=== PATIENT | female | born 1980 | race Caucasian/White ===

== ENCOUNTER 2018-11-21 11:07 | Emergency (ER) | payer OTHER ==
[~2018-11-21] VITALS: Ht 167.6 cm; Wt 81.6 kg
[~2018-11-21 11:07] MED LIST: AMBIEN10 M1 PO; CIPROFLOXACIN500 MG PO; PERCOCET 325 MG1 TA2 PO; TORADOL NAS; UROCIT-K15 MEQ PO
[2018-11-21 12:01] LABS: BILIRUBIN NEGATIVE (NEGATIVE); BLOOD 3+ (NEGATIVE); CLARITY CLOUDY (CLEAR); COLOR BROWN (YELLOW); GLUCOSE NEGATIVE (NEGATIVE); KETONE NEGATIVE (NEGATIVE); LEUKO ESTERASE 2+ (NEGATIVE); NITRITE NEGATIVE (NEGATIVE); SPECIFIC GRAVITY 1.025 (1.005-1.030); UROBILINOGEN 0.2 E.U./dl (0.2-1.0)
[2018-11-21 12:27] LABS: BACTERIA 2+; RBC TNTC rbc/hpf (0-2)
[2018-11-21 12:28] LABS: CALCIUM OXALATE CRYSTALS TRACE; EPITHELIAL CELLS 20-30
[2018-11-21 12:57] LABS: BASO % 0.5 % (0.0-1.0); EOS # 0.2 10*3/uL (0.0-0.4); EOS % 2.5 % (1.0-4.0); HEMATOCRIT 39.2 % (37.0-47.0); HEMOGLOBIN 13.3 g/dl (12.0-16.0); LYMPH # 1.8 10*3/uL (1.3-4.4); LYMPH % 30.2 % (27.0-41.0); MEAN CELL VOLUME 87.3 fl (81.0-99.0); MEAN CORPUSCULAR HGB 29.6 pg (27.0-31.0); MEAN CORPUSCULAR HGB CONC 33.9 g/dl (33.0-37.0); MEAN PLATELET VOLUME 10.8 fl (9.6-12.3); MONO # 0.6 10*3/uL (0.1-1.0); MONO % 9.8 % (3.0-9.0); NEUT # 3.4 10*3/uL (2.3-7.9); NEUT % 56.8 % (47.0-73.0); PLATELET COUNT AUTOMATED 236 10*3/uL (130-400); RED BLOOD COUNT 4.49 10*6/uL (4.10-5.10); RED CELL DISTRI WIDTH 12.9 % (0-14.5)
[2018-11-21 13:20] LABS: ALBUMIN 3.7 gm/dl (3.1-4.5); ALKALINE PHOSPHATASE 83 U/L (45-117); BUN 14 mg/dl (7-24); CHLORIDE 109 mmol/L (98-107); CREATININE 0.71 mg/dL (0.55-1.02); LIPASE 200 U/L (73-393); POTASSIUM 4.2 mmol/L (3.5-5.1); SGOT/AST 51 IU/L (3-35); SGPT/ALT 70 U/L (12-78); SODIUM 140 mmol/L (136-145); TOTAL PROTEIN 7.8 gm/dL (6.4-8.2)
[2018-11-21] MEDS ORDERED: SEPTDS PO (14:29)
[2018-11-21] MEDS ORDERED: IBUPROFEN600 MG PO (14:29)
== END 2018-11-21 15:15 | disposition home or self-care (01) ==
LOC: ED 11:07 → EDBD 11:14 → ED 11:14
PROVIDERS: Emergency Medicine; Physician Assistant
DX: N20.0 Calculus of kidney (principal); N39.0 Urinary tract infection, site not specified; Z87.442 Personal history of urinary calculi; Z91.041 Radiographic dye allergy status; Z90.710 Acquired absence of both cervix and uterus; Z90.49 Acquired absence of other specified parts of digestive tract

== ENCOUNTER 2019-01-09 11:38 | Emergency (ER) | payer OTHER ==
[~2019-01-09] VITALS: Wt 81.6 kg
[~2019-01-09 11:38] MED LIST changes: +IBUPROFEN600 MG PO; +SEPTDS PO
[2019-01-09 12:22] LABS: BILIRUBIN NEGATIVE (NEGATIVE); BLOOD 3+ (NEGATIVE); CLARITY CLOUDY (CLEAR); COLOR YELLOW (YELLOW); GLUCOSE NEGATIVE (NEGATIVE); KETONE TRACE (NEGATIVE); LEUKO ESTERASE 1+ (NEGATIVE); NITRITE NEGATIVE (NEGATIVE); PH 5.5 (5.0-9.0); SPECIFIC GRAVITY 1.025 (1.005-1.030); UROBILINOGEN 0.2 E.U./dl (0.2-1.0)
[2019-01-09 12:35] LABS: BACTERIA 4+; EPITHELIAL CELLS 25-30; RBC TNTC rbc/hpf (0-2)
[2019-01-09 12:42] LABS: URINE AMPHETAMINES > 1000 (1000ng/ml); URINE BARBITURATES < 200 (200ng/ml); URINE BENZODIAZEPINES > 200 (200ng/ml); URINE CANNABINOIDS (THC) < 50 (50ng/ml); URINE COCAINE < 300 (300ng/ml); URINE METHADONE < 300 (300ng/ml); URINE OPIATES > 300 (300ng/ml); URINE PHENCYCLIDINE < 25 (25ng/ml)
[2019-01-09 12:49] LABS: BASO % 0.6 % (0.0-1.0); EOS # 0.1 10*3/uL (0.0-0.4); EOS % 1.9 % (1.0-4.0); HEMATOCRIT 40.5 % (37.0-47.0); HEMOGLOBIN 13.5 g/dl (12.0-16.0); LYMPH % 29.3 % (27.0-41.0); MEAN CELL VOLUME 87.5 fl (81.0-99.0); MEAN CORPUSCULAR HGB 29.2 pg (27.0-31.0); MEAN CORPUSCULAR HGB CONC 33.3 g/dl (33.0-37.0); MONO # 0.6 10*3/uL (0.1-1.0); MONO % 8.7 % (3.0-9.0); NEUT # 4.1 10*3/uL (2.3-7.9); NEUT % 59.2 % (47.0-73.0); PLATELET COUNT AUTOMATED 215 10*3/uL (130-400); RED BLOOD COUNT 4.63 10*6/uL (4.10-5.10); RED CELL DISTRI WIDTH 12.4 % (0-14.5); WHITE BLOOD COUNT 6.9 10*3/uL (4.8-10.8)
[2019-01-09 13:01] LABS: BUN 15 mg/dl (7-24); CHLORIDE 108 mmol/L (98-107); CREATININE 0.82 mg/dL (0.55-1.02); POTASSIUM 3.7 mmol/L (3.5-5.1); SODIUM 140 mmol/L (136-145)
== END 2019-01-09 13:37 | disposition home or self-care (01) ==
LOC: ED 11:38
PROVIDERS: Emergency Medicine
DX: N23 Unspecified renal colic (principal); Z90.710 Acquired absence of both cervix and uterus; Z98.890 Other specified postprocedural states; Z90.49 Acquired absence of other specified parts of digestive tract; Z87.440 Personal history of urinary (tract) infections; Z79.899 Other long term (current) drug therapy; Z87.442 Personal history of urinary calculi

== ENCOUNTER 2019-01-11 11:21 | Emergency (ER) | payer OTHER ==
[2019-01-11 11:49] LABS: BASO % 0.4 % (0.0-1.0); EOS # 0.2 10*3/uL (0.0-0.4); HEMATOCRIT 39.5 % (37.0-47.0); LYMPH # 1.6 10*3/uL (1.3-4.4); LYMPH % 22.4 % (27.0-41.0); MEAN CELL VOLUME 89.4 fl (81.0-99.0); MEAN CORPUSCULAR HGB 29.4 pg (27.0-31.0); MEAN CORPUSCULAR HGB CONC 32.9 g/dl (33.0-37.0); MEAN PLATELET VOLUME 10.2 fl (9.6-12.3); MONO # 0.7 10*3/uL (0.1-1.0); MONO % 9.9 % (3.0-9.0); NEUT # 4.7 10*3/uL (2.3-7.9); PLATELET COUNT AUTOMATED 199 10*3/uL (130-400); RED BLOOD COUNT 4.42 10*6/uL (4.10-5.10); RED CELL DISTRI WIDTH 12.2 % (0-14.5); WHITE BLOOD COUNT 7.3 10*3/uL (4.8-10.8)
[2019-01-11 11:50] LABS: BILIRUBIN NEGATIVE (NEGATIVE); BLOOD 3+ (NEGATIVE); CLARITY CLOUDY (CLEAR); COLOR YELLOW (YELLOW); GLUCOSE NEGATIVE (NEGATIVE); KETONE NEGATIVE (NEGATIVE); LEUKO ESTERASE TRACE (NEGATIVE); NITRITE NEGATIVE (NEGATIVE); SPECIFIC GRAVITY 1.025 (1.005-1.030); UROBILINOGEN 0.2 E.U./dl (0.2-1.0)
[2019-01-11 12:01] LABS: RBC TNTC rbc/hpf (0-2)
[2019-01-11 12:03] LABS: BACTERIA 1+; EPITHELIAL CELLS 15-20; MUCOUS 1+
[2019-01-11 12:04] LABS: ALKALINE PHOSPHATASE 87 U/L (45-117); BUN 9 mg/dl (7-24); CHLORIDE 106 mmol/L (98-107); CREATININE 0.86 mg/dL (0.55-1.02); POTASSIUM 4.2 mmol/L (3.5-5.1); SGOT/AST 28 IU/L (3-35); SGPT/ALT 58 U/L (12-78); SODIUM 140 mmol/L (136-145); TOTAL PROTEIN 8.1 gm/dL (6.4-8.2)
== END 2019-01-11 12:04 ==
LOC: ED 11:21
PROVIDERS: Nurse Practitioner Family
DX: N23 Unspecified renal colic (principal); Z79.899 Other long term (current) drug therapy; Z90.710 Acquired absence of both cervix and uterus; Z90.49 Acquired absence of other specified parts of digestive tract; Z98.890 Other specified postprocedural states

== ENCOUNTER 2019-02-08 22:32 | Emergency (ER) | payer OTHER ==
[~2019-02-08] VITALS: Ht 165.1 cm; Wt 81.6 kg
[2019-02-08] MEDS ORDERED: LORAZEPAM1 MG PO (22:45)
[2019-02-08] MEDS ORDERED: LATU40TA1 PO (22:45)
[2019-02-08] MEDS ORDERED: KETOROLAC10 MG INH (22:46)
[2019-02-08] MEDS ORDERED: 'CLONIDINE0.1 MG PO (22:46)
[2019-02-08] MEDS ORDERED: CLONAZEPAM1 MG PO (22:46)
[2019-02-08 23:04] LABS: BILIRUBIN NEGATIVE (NEGATIVE); BLOOD 3+ (NEGATIVE); CLARITY CLOUDY (CLEAR); COLOR YELLOW (YELLOW); GLUCOSE NEGATIVE (NEGATIVE); KETONE TRACE (NEGATIVE); LEUKO ESTERASE 2+ (NEGATIVE); NITRITE NEGATIVE (NEGATIVE); PH 5.5 (5.0-9.0); SPECIFIC GRAVITY >= 1.030 (1.005-1.030); UROBILINOGEN 0.2 E.U./dl (0.2-1.0)
[2019-02-08 23:23] LABS: BASO # 0.1 10*3/uL (0.0-0.1); BASO % 0.8 % (0.0-1.0); EOS # 0.2 10*3/uL (0.0-0.4); HEMATOCRIT 41.1 % (37.0-47.0); HEMOGLOBIN 13.7 g/dl (12.0-16.0); LYMPH # 3.6 10*3/uL (1.3-4.4); LYMPH % 47.4 % (27.0-41.0); MEAN CELL VOLUME 88.8 fl (81.0-99.0); MEAN CORPUSCULAR HGB 29.6 pg (27.0-31.0); MEAN CORPUSCULAR HGB CONC 33.3 g/dl (33.0-37.0); MEAN PLATELET VOLUME 10.1 fl (9.6-12.3); MONO # 0.7 10*3/uL (0.1-1.0); MONO % 9.4 % (3.0-9.0); NEUT # 3.1 10*3/uL (2.3-7.9); NEUT % 40.3 % (47.0-73.0); PLATELET COUNT AUTOMATED 200 10*3/uL (130-400); RED BLOOD COUNT 4.63 10*6/uL (4.10-5.10); RED CELL DISTRI WIDTH 12.5 % (0-14.5); WHITE BLOOD COUNT 7.6 10*3/uL (4.8-10.8)
[2019-02-08 23:38] LABS: BACTERIA 1+; RBC TNTC rbc/hpf (0-2)
[2019-02-08 23:39] LABS: ALBUMIN 4.1 gm/dl (3.1-4.5); ALKALINE PHOSPHATASE 89 U/L (45-117); BUN 16 mg/dl (7-24); CHLORIDE 106 mmol/L (98-107); CREATININE 1.03 mg/dL (0.55-1.02); POTASSIUM 3.7 mmol/L (3.5-5.1); SGOT/AST 33 IU/L (3-35); SGPT/ALT 71 U/L (12-78); SODIUM 140 mmol/L (136-145); TOTAL PROTEIN 8.6 gm/dL (6.4-8.2)
== END 2019-02-09 02:15 | disposition home or self-care (01) ==
LOC: ED 22:32
PROVIDERS: Physician Assistant
DX: N20.1 Calculus of ureter (principal); Z87.442 Personal history of urinary calculi; Z91.041 Radiographic dye allergy status; Z79.899 Other long term (current) drug therapy; Z90.710 Acquired absence of both cervix and uterus

== ENCOUNTER 2019-02-25 00:38 | Emergency (ER) | payer OTHER ==
[~2019-02-25] VITALS: Ht 165.1 cm; Wt 81.6 kg
[~2019-02-25 00:38] MED LIST changes: +'CLONIDINE0.1 MG PO; +CLONAZEPAM1 MG PO; +KETOROLAC10 MG INH; +LATU40TA1 PO; +LORAZEPAM1 MG PO
[2019-02-25 01:07] LABS: BILIRUBIN NEGATIVE (NEGATIVE); BLOOD 3+ (NEGATIVE); CLARITY CLEAR (CLEAR); COLOR STRAW (YELLOW); GLUCOSE NEGATIVE (NEGATIVE); KETONE NEGATIVE (NEGATIVE); LEUKO ESTERASE 1+ (NEGATIVE); NITRITE NEGATIVE (NEGATIVE); PH 6.5 (5.0-9.0); SPECIFIC GRAVITY <= 1.005 (1.005-1.030); UROBILINOGEN 0.2 E.U./dl (0.2-1.0)
[2019-02-25 01:14] LABS: BACTERIA TRACE; RBC 51-100 rbc/hpf (0-2)
[2019-02-25 01:31] LABS: BASO % 0.4 % (0.0-1.0); EOS # 0.2 10*3/uL (0.0-0.4); EOS % 2.7 % (1.0-4.0); HEMATOCRIT 39.6 % (37.0-47.0); HEMOGLOBIN 12.9 g/dl (12.0-16.0); LYMPH # 3.3 10*3/uL (1.3-4.4); LYMPH % 47.2 % (27.0-41.0); MEAN CELL VOLUME 89.4 fl (81.0-99.0); MEAN CORPUSCULAR HGB 29.1 pg (27.0-31.0); MEAN CORPUSCULAR HGB CONC 32.6 g/dl (33.0-37.0); MEAN PLATELET VOLUME 10.1 fl (9.6-12.3); MONO # 0.6 10*3/uL (0.1-1.0); MONO % 8.7 % (3.0-9.0); NEUT # 2.8 10*3/uL (2.3-7.9); NEUT % 40.7 % (47.0-73.0); PLATELET COUNT AUTOMATED 192 10*3/uL (130-400); RED BLOOD COUNT 4.43 10*6/uL (4.10-5.10); RED CELL DISTRI WIDTH 12.3 % (0-14.5)
[2019-02-25 01:46] LABS: ALBUMIN 4.2 gm/dl (3.1-4.5); BUN 16 mg/dl (7-24); CHLORIDE 105 mmol/L (98-107); CREATININE 0.85 mg/dL (0.55-1.02); PHOSPHOROUS 3.9 mg/dL (2.5-4.9); POTASSIUM 3.7 mmol/L (3.5-5.1); SODIUM 140 mmol/L (136-145)
== END 2019-02-25 03:25 | disposition left against medical advice (07) ==
LOC: ED 00:38
PROVIDERS: Internal Medicine; Physician Assistant
DX: R10.9 Unspecified abdominal pain (principal); N20.0 Calculus of kidney; Z79.899 Other long term (current) drug therapy; Z90.710 Acquired absence of both cervix and uterus; Z90.49 Acquired absence of other specified parts of digestive tract; Z98.890 Other specified postprocedural states

== ENCOUNTER 2019-04-08 22:48 | Emergency (ER) | payer OTHER ==
[~2019-04-08] VITALS: Ht 152.4 cm; Wt 81.6 kg
[2019-04-08 23:23] LABS: BILIRUBIN NEGATIVE (NEGATIVE); BLOOD 3+ (NEGATIVE); CLARITY SL CLOUDY (CLEAR); COLOR RED (YELLOW); GLUCOSE NEGATIVE (NEGATIVE); KETONE NEGATIVE (NEGATIVE); LEUKO ESTERASE 3+ (NEGATIVE); NITRITE NEGATIVE (NEGATIVE); SPECIFIC GRAVITY <= 1.005 (1.005-1.030); UROBILINOGEN 0.2 E.U./dl (0.2-1.0)
[2019-04-08 23:35] LABS: BACTERIA 1+; EPITHELIAL CELLS 16-20; RBC 51-100 rbc/hpf (0-2); WBC 41-50 wbc/hpf (0-5)
== END 2019-04-08 23:53 | disposition home or self-care (01) ==
LOC: ED 22:48
PROVIDERS: Physician Assistant
DX: R10.9 Unspecified abdominal pain (principal); R11.2 Nausea with vomiting, unspecified; R31.9 Hematuria, unspecified; N20.0 Calculus of kidney; Z91.041 Radiographic dye allergy status; Z79.899 Other long term (current) drug therapy; Z90.710 Acquired absence of both cervix and uterus; Z90.49 Acquired absence of other specified parts of digestive tract

== ENCOUNTER 2019-09-05 11:28 | Emergency (ER) | payer OTHER ==
[~2019-09-05] VITALS: Ht 165.1 cm; Wt 81.6 kg
[2019-09-05 12:00] LABS: BILIRUBIN NEGATIVE (NEGATIVE); BLOOD 3+ (NEGATIVE); CLARITY CLOUDY (CLEAR); COLOR RED (YELLOW); GLUCOSE NEGATIVE (NEGATIVE); KETONE NEGATIVE (NEGATIVE); LEUKO ESTERASE 2+ (NEGATIVE); NITRITE NEGATIVE (NEGATIVE); SPECIFIC GRAVITY 1.025 (1.005-1.030); UROBILINOGEN 0.2 E.U./dl (0.2-1.0)
[2019-09-05 12:16] LABS: RBC TNTC rbc/hpf (0-2)
[2019-09-05 12:26] LABS: BASO # 0.1 10*3/uL (0.0-0.1); BASO % 0.9 % (0.0-1.0); EOS # 0.1 10*3/uL (0.0-0.4); EOS % 2.1 % (1.0-4.0); LYMPH # 2.3 10*3/uL (1.3-4.4); LYMPH % 40.1 % (27.0-41.0); MEAN CELL VOLUME 87.7 fl (81.0-99.0); MEAN CORPUSCULAR HGB 29.2 pg (27.0-31.0); MEAN CORPUSCULAR HGB CONC 33.3 g/dl (33.0-37.0); MONO # 0.5 10*3/uL (0.1-1.0); NEUT # 2.8 10*3/uL (2.3-7.9); NEUT % 48.9 % (47.0-73.0); PLATELET COUNT AUTOMATED 216 10*3/uL (130-400); RED BLOOD COUNT 4.79 10*6/uL (4.10-5.10); RED CELL DISTRI WIDTH 12.3 % (0-14.5); WHITE BLOOD COUNT 5.6 10*3/uL (4.8-10.8)
[2019-09-05 12:41] LABS: ALBUMIN 4.4 gm/dl (3.1-4.5); ALKALINE PHOSPHATASE 88 U/L (45-117); BUN 15 mg/dl (7-24); CHLORIDE 108 mmol/L (98-107); POTASSIUM 3.8 mmol/L (3.5-5.1); SGOT/AST 34 IU/L (3-35); SGPT/ALT 64 U/L (12-78); SODIUM 140 mmol/L (136-145); TOTAL PROTEIN 8.3 gm/dL (6.4-8.2)
== END 2019-09-05 14:18 | disposition home or self-care (01) ==
LOC: ED 11:28
PROVIDERS: Nurse Practitioner Family
DX: N20.0 Calculus of kidney (principal); N23 Unspecified renal colic; Z79.899 Other long term (current) drug therapy

== ENCOUNTER 2020-07-07 22:08 | Emergency (ER) | payer OTHER ==
[~2020-07-07] VITALS: Ht 165.1 cm; Wt 73.5 kg
[2020-07-07 23:27] LABS: BASO % 0.4 % (0.0-1.0); EOS # 0.2 10*3/uL (0.0-0.4); HEMATOCRIT 42.5 % (37.0-47.0); LYMPH # 3.1 10*3/uL (1.3-4.4); LYMPH % 55.6 % (27.0-41.0); MEAN CELL VOLUME 87.6 fl (81.0-99.0); MEAN CORPUSCULAR HGB 28.5 pg (27.0-31.0); MEAN CORPUSCULAR HGB CONC 32.5 g/dl (33.0-37.0); MONO # 0.5 10*3/uL (0.1-1.0); MONO % 8.2 % (3.0-9.0); NEUT # 1.8 10*3/uL (2.3-7.9); NEUT % 32.6 % (47.0-73.0); PLATELET COUNT AUTOMATED 211 10*3/uL (130-400); RED BLOOD COUNT 4.85 10*6/uL (4.10-5.10); RED CELL DISTRI WIDTH 12.1 % (0-14.5); WHITE BLOOD COUNT 5.6 10*3/uL (4.8-10.8)
[2020-07-07 23:38] LABS: ALKALINE PHOSPHATASE 87 U/L (45-117); BUN 11 mg/dl (7-24); CHLORIDE 107 mmol/L (98-107); CREATININE 0.77 mg/dL (0.55-1.02); LIPASE 261 U/L (73-393); POTASSIUM 3.9 mmol/L (3.5-5.1); SGOT/AST 13 IU/L (3-35); SGPT/ALT 26 U/L (12-78); SODIUM 140 mmol/L (136-145); TOTAL PROTEIN 7.9 gm/dL (6.4-8.2)
[2020-07-08 00:05] LABS: BILIRUBIN Negative (Negative); BLOOD 3+ (Negative); CLARITY Cloudy (Clear); COLOR Red (Yellow); GLUCOSE Negative (Negative); KETONE Negative (Negative); LEUKO ESTERASE 3+ (Negative); NITRITE Negative (Negative); SPECIFIC GRAVITY 1.015 (1.001-1.030)
[2020-07-08 00:12] LABS: BACTERIA 1+; RBC TNTC rbc/hpf (0-2); WBC 31-40 wbc/hpf (0-5)
[2020-07-08] MEDS ORDERED: SEPTDS PO (00:45)
[2020-07-08] MEDS ORDERED: PYRIDIUM200 M1 PO (00:45)
== END 2020-07-08 02:03 | disposition home or self-care (01) ==
LOC: ED 22:08
PROVIDERS: Physician Assistant
DX: N39.0 Urinary tract infection, site not specified (principal); N23 Unspecified renal colic; Z79.899 Other long term (current) drug therapy

== ENCOUNTER 2021-02-20 23:55 | Emergency (ER) | payer OTHER ==
[~2021-02-20] VITALS: Ht 165.1 cm; Wt 79.4 kg
[~2021-02-20 23:55] MED LIST changes: +PYRIDIUM200 M1 PO
[2021-02-21 00:58] LABS: BILIRUBIN Negative (Negative); BLOOD 3+ (Negative); CLARITY Clear (Clear); COLOR Orange (Yellow); GLUCOSE Negative (Negative); KETONE Negative (Negative); LEUKO ESTERASE 3+ (Negative); NITRITE Negative (Negative); PH 6.5 (4.5-8.0); UROBILINOGEN 0.2 E.U./dl (0.0-1.0)
[2021-02-21 01:36] LABS: BACTERIA 2+; RBC 41-50 rbc/hpf (0-2); WBC 51-100 wbc/hpf (0-5)
[2021-02-21] MEDS ORDERED: CIPRO500 MG PO (01:58)
== END 2021-02-21 02:07 | disposition home or self-care (01) ==
LOC: ED 23:55
PROVIDERS: Internal Medicine
DX: N39.0 Urinary tract infection, site not specified (principal); Z87.442 Personal history of urinary calculi; Z90.710 Acquired absence of both cervix and uterus; Z98.890 Other specified postprocedural states

== ENCOUNTER 2021-05-13 01:12 | Emergency (ER) | payer OTHER ==
[~2021-05-13] VITALS: Ht 165.1 cm; Wt 79.4 kg
[~2021-05-13 01:12] MED LIST changes: +CIPRO500 MG PO
[2021-05-13 02:10] LABS: BILIRUBIN Negative (Negative); BLOOD 3+ (Negative); CLARITY Clear (Clear); COLOR Red (Yellow); GLUCOSE Negative (Negative); KETONE Negative (Negative); LEUKO ESTERASE 2+ (Negative); NITRITE Negative (Negative); SPECIFIC GRAVITY <= 1.005 (1.001-1.030); UROBILINOGEN 0.2 E.U./dl (0.0-1.0)
[2021-05-13 02:31] LABS: RBC TNTC rbc/hpf (0-2)
[2021-05-13] MEDS ORDERED: CIPRO500 MG PO (02:47)
== END 2021-05-13 02:49 | disposition home or self-care (01) ==
LOC: ED 01:12
PROVIDERS: Internal Medicine
DX: N39.0 Urinary tract infection, site not specified (principal); Z87.442 Personal history of urinary calculi; Z91.041 Radiographic dye allergy status; Z79.899 Other long term (current) drug therapy; Z79.2 Long term (current) use of antibiotics; Z90.711 Acquired absence of uterus with remaining cervical stump; Z90.49 Acquired absence of other specified parts of digestive tract; Z98.890 Other specified postprocedural states

== ENCOUNTER 2021-08-25 21:38 | Emergency (ER) | payer OTHER ==
[~2021-08-25] VITALS: Ht 165.1 cm; Wt 81.6 kg
[2021-08-25 22:57] LABS: BILIRUBIN Negative (Negative); BLOOD 3+ (Negative); CLARITY Cloudy (Clear); COLOR Orange (Yellow); GLUCOSE Negative (Negative); KETONE Negative (Negative); LEUKO ESTERASE 2+ (Negative); NITRITE Negative (Negative); UROBILINOGEN 0.2 E.U./dl (0.0-1.0)
[2021-08-25 23:04] LABS: BACTERIA 2+; RBC TNTC rbc/hpf (0-2); WBC 21-30 wbc/hpf (0-5)
[2021-08-25 23:05] LABS: BASO % 0.4 % (0.0-1.0); EOS # 0.2 10*3/uL (0.0-0.4); EOS % 2.1 % (1.0-4.0); HEMATOCRIT 42.6 % (37.0-47.0); LYMPH # 3.2 10*3/uL (1.3-4.4); LYMPH % 43.6 % (27.0-41.0); MEAN CELL VOLUME 87.7 fl (81.0-99.0); MEAN CORPUSCULAR HGB CONC 33.1 g/dl (33.0-37.0); MONO # 0.7 10*3/uL (0.1-1.0); NEUT # 3.2 10*3/uL (2.3-7.9); NEUT % 44.8 % (47.0-73.0); PLATELET COUNT AUTOMATED 200 10*3/uL (130-400); RED BLOOD COUNT 4.86 10*6/uL (4.10-5.10); RED CELL DISTRI WIDTH 12.4 % (0-14.5); WHITE BLOOD COUNT 7.2 10*3/uL (4.8-10.8)
[2021-08-25 23:19] LABS: ALBUMIN 4.1 gm/dl (3.1-4.5); ALKALINE PHOSPHATASE 105 U/L (45-117); BUN 14 mg/dl (7-24); CHLORIDE 107 mmol/L (98-107); CREATININE 0.77 mg/dL (0.55-1.02); POTASSIUM 3.5 mmol/L (3.5-5.1); SGOT/AST 77 IU/L (3-35); SGPT/ALT 136 U/L (12-78); SODIUM 138 mmol/L (136-145); TOTAL PROTEIN 8.5 gm/dL (6.4-8.2)
[2021-08-26] MEDS ORDERED: PERCOCET 5-3251 EACH PO (00:36)
[2021-08-26] MEDS ORDERED: CIPRO500 MG PO (00:37)
== END 2021-08-26 01:24 | disposition home or self-care (01) ==
LOC: ED 21:38
PROVIDERS: Emergency Medicine
DX: N20.0 Calculus of kidney (principal)

== ENCOUNTER 2021-12-16 22:06 | Emergency (ER) | payer OTHER ==
[~2021-12-16] VITALS: Ht 165.1 cm; Wt 86.2 kg
[~2021-12-16 22:06] MED LIST changes: +PERCOCET 5-3251 EACH PO
[2021-12-16 23:15] LABS: BILIRUBIN Negative (Negative); BLOOD 3+ (Negative); CLARITY Clear (Clear); COLOR Yellow (Yellow); GLUCOSE Negative (Negative); KETONE Negative (Negative); LEUKO ESTERASE 1+ (Negative); NITRITE Negative (Negative); PH 5.5 (4.5-8.0); UROBILINOGEN 0.2 E.U./dl (0.0-1.0)
[2021-12-16 23:16] LABS: BASO # 0.1 10*3/uL (0.0-0.1); BASO % 0.7 % (0.0-1.0); EOS # 0.1 10*3/uL (0.0-0.4); EOS % 1.9 % (1.0-4.0); HEMATOCRIT 40.7 % (37.0-47.0); LYMPH # 3.4 10*3/uL (1.3-4.4); LYMPH % 47.9 % (27.0-41.0); MEAN CELL VOLUME 85.1 fl (81.0-99.0); MEAN CORPUSCULAR HGB 29.3 pg (27.0-31.0); MEAN CORPUSCULAR HGB CONC 34.4 g/dl (33.0-37.0); MEAN PLATELET VOLUME 10.2 fl (9.6-12.3); MONO # 0.6 10*3/uL (0.1-1.0); MONO % 8.6 % (3.0-9.0); NEUT # 2.9 10*3/uL (2.3-7.9); NEUT % 40.9 % (47.0-73.0); PLATELET COUNT AUTOMATED 198 10*3/uL (130-400); RED BLOOD COUNT 4.78 10*6/uL (4.10-5.10); RED CELL DISTRI WIDTH 12.2 % (0-14.5); WHITE BLOOD COUNT 7.2 10*3/uL (4.8-10.8)
[2021-12-16 23:25] LABS: RBC 41-50 rbc/hpf (0-2)
[2021-12-16 23:26] LABS: URINE AMPHETAMINES > 1000 (1000ng/ml); URINE BARBITURATES < 200 (200ng/ml); URINE BENZODIAZEPINES < 200 (200ng/ml); URINE CANNABINOIDS (THC) < 50 (50ng/ml); URINE COCAINE < 300 (300ng/ml); URINE METHADONE < 300 (300ng/ml); URINE OPIATES < 300 (300ng/ml)
[2021-12-16 23:27] LABS: URINE PHENCYCLIDINE < 25 (25ng/ml)
[2021-12-16 23:37] LABS: ALKALINE PHOSPHATASE 110 U/L (45-117); BUN 13 mg/dl (7-24); CHLORIDE 106 mmol/L (98-107); CREATININE 0.78 mg/dL (0.55-1.02); POTASSIUM 3.4 mmol/L (3.5-5.1); SGOT/AST 69 IU/L (3-35); SGPT/ALT 120 U/L (12-78); SODIUM 137 mmol/L (136-145); TOTAL PROTEIN 8.1 gm/dL (6.4-8.2)
[2021-12-17] MEDS ORDERED: CEPHALEXIN500 M1 PO (01:02)
== END 2021-12-17 00:46 | disposition home or self-care (01) ==
LOC: ED 22:06
PROVIDERS: Emergency Medicine
DX: N39.0 Urinary tract infection, site not specified (principal); Z87.442 Personal history of urinary calculi; Z79.899 Other long term (current) drug therapy; Z90.710 Acquired absence of both cervix and uterus; Z98.890 Other specified postprocedural states; Z90.49 Acquired absence of other specified parts of digestive tract

== ENCOUNTER 2022-10-03 20:56 | Emergency (ER) | payer OTHER ==
[~2022-10-03] VITALS: Wt 83.9 kg
[~2022-10-03 20:56] MED LIST changes: +CEPHALEXIN500 M1 PO
[2022-10-03] MEDS ORDERED: SPRIX1 EACH NAS (21:02)
[2022-10-03 21:18] LABS: BILIRUBIN Negative (Negative); BLOOD Trace-Intact (Negative); CLARITY Clear (Clear); COLOR Yellow (Yellow); GLUCOSE 3+ (Negative); KETONE Negative (Negative); LEUKO ESTERASE 2+ (Negative); NITRITE Negative (Negative); SPECIFIC GRAVITY 1.015 (1.001-1.030); UROBILINOGEN 0.2 E.U./dl (0.0-1.0)
[2022-10-03 21:19] LABS: BASO # 0.1 10*3/uL (0.0-0.1); BASO % 0.8 % (0.0-1.0); EOS # 0.2 10*3/uL (0.0-0.4); LYMPH % 47.4 % (27.0-41.0); MEAN CELL VOLUME 85.4 fl (81.0-99.0); MEAN CORPUSCULAR HGB 28.3 pg (27.0-31.0); MEAN CORPUSCULAR HGB CONC 33.2 g/dl (33.0-37.0); MEAN PLATELET VOLUME 9.8 fl (9.6-12.3); MONO # 0.6 10*3/uL (0.1-1.0); MONO % 7.4 % (3.0-9.0); NEUT # 3.6 10*3/uL (2.3-7.9); NEUT % 42.3 % (47.0-73.0); PLATELET COUNT AUTOMATED 237 10*3/uL (130-400); RED BLOOD COUNT 5.15 10*6/uL (4.10-5.10); WHITE BLOOD COUNT 8.5 10*3/uL (4.8-10.8)
[2022-10-03 21:25] LABS: BACTERIA 1+; WBC TNTC wbc/hpf (0-5)
[2022-10-03 21:26] LABS: URINE AMPHETAMINES Positive (1000ng/ml); URINE BARBITURATES Negative (200ng/ml); URINE BENZODIAZEPINES Negative (200ng/ml); URINE CANNABINOIDS (THC) Negative (50ng/ml); URINE COCAINE Negative (300ng/ml); URINE METHADONE Negative (300ng/ml); URINE OPIATES Negative (300ng/ml); URINE PHENCYCLIDINE Negative (25ng/ml)
[2022-10-03 21:34] LABS: ALKALINE PHOSPHATASE 116 U/L (46-116); BUN 12 mg/dl (9-23); CHLORIDE 100 mmol/L (98-107); POTASSIUM 3.4 mmol/L (3.4-5.1); SGPT/ALT 63 U/L (10-49); TOTAL PROTEIN 8.1 gm/dL (6.0-8.0)
[2022-10-03] MEDS ORDERED: MACROBID100 M1 PO (22:05)
== END 2022-10-03 22:59 | disposition home or self-care (01) ==
LOC: ED 20:56
PROVIDERS: Emergency Medicine
DX: N20.0 Calculus of kidney (principal); N39.0 Urinary tract infection, site not specified; Z91.041 Radiographic dye allergy status; Z90.710 Acquired absence of both cervix and uterus; Z98.890 Other specified postprocedural states; Z90.49 Acquired absence of other specified parts of digestive tract; Z79.899 Other long term (current) drug therapy

== ENCOUNTER 2022-12-20 21:18 | Emergency (ER) | payer OTHER ==
[~2022-12-20] VITALS: Ht 165.1 cm; Wt 81.6 kg
[~2022-12-20 21:18] MED LIST changes: +MACROBID100 M1 PO; +SPRIX1 EACH NAS
[2022-12-20 22:29] LABS: BILIRUBIN Negative (Negative); BLOOD 3+ (Negative); CLARITY Clear (Clear); COLOR Orange (Yellow); GLUCOSE 3+ (Negative); KETONE Trace (Negative); LEUKO ESTERASE 2+ (Negative); NITRITE Negative (Negative); PH 6.5 (4.5-8.0)
[2022-12-20 23:23] LABS: BACTERIA 1+; RBC 31-40 rbc/hpf (0-2); WBC 16-20 wbc/hpf (0-5)
[2022-12-20] MEDS ORDERED: CIPRO500 MG PO (23:38)
== END 2022-12-20 23:40 | disposition home or self-care (01) ==
LOC: ED 21:18
PROVIDERS: Internal Medicine
DX: N39.0 Urinary tract infection, site not specified (principal); N20.0 Calculus of kidney; Z90.710 Acquired absence of both cervix and uterus; Z98.890 Other specified postprocedural states; Z90.49 Acquired absence of other specified parts of digestive tract

== ENCOUNTER 2023-01-31 22:16 | Emergency (ER) | payer OTHER ==
[~2023-01-31] VITALS: Ht 165.1 cm; Wt 81.6 kg
[2023-01-31 23:35] LABS: BASO # 0.1 10*3/uL (0.0-0.1); BASO % 0.7 % (0.0-1.0); EOS # 0.1 10*3/uL (0.0-0.4); EOS % 1.8 % (1.0-4.0); HEMATOCRIT 43.4 % (37.0-47.0); LYMPH # 3.1 10*3/uL (1.3-4.4); LYMPH % 46.1 % (27.0-41.0); MEAN CELL VOLUME 86.1 fl (81.0-99.0); MEAN CORPUSCULAR HGB 28.8 pg (27.0-31.0); MEAN CORPUSCULAR HGB CONC 33.4 g/dl (33.0-37.0); MEAN PLATELET VOLUME 10.3 fl (9.6-12.3); MONO # 0.5 10*3/uL (0.1-1.0); MONO % 7.8 % (3.0-9.0); NEUT % 43.5 % (47.0-73.0); PLATELET COUNT AUTOMATED 213 10*3/uL (130-400); RED BLOOD COUNT 5.04 10*6/uL (4.10-5.10); RED CELL DISTRI WIDTH 12.3 % (0-14.5); WHITE BLOOD COUNT 6.8 10*3/uL (4.8-10.8)
[2023-01-31 23:38] LABS: BILIRUBIN Negative (Negative); BLOOD 3+ (Negative); CLARITY Clear (Clear); COLOR Yellow (Yellow); GLUCOSE 1+ (Negative); KETONE Negative (Negative); LEUKO ESTERASE 2+ (Negative); NITRITE Negative (Negative); SPECIFIC GRAVITY 1.015 (1.001-1.030)
[2023-02-01] LABS: RBC 41-50 rbc/hpf (0-2); WBC 16-20 wbc/hpf (0-5)
[2023-02-01 00:08] LABS: ALKALINE PHOSPHATASE 97 U/L (46-116); BUN 8 mg/dl (9-23); CHLORIDE 100 mmol/L (98-107); LIPASE 70 U/L (12-53); POTASSIUM 2.9 mmol/L (3.4-5.1); SGPT/ALT 51 U/L (10-49); TOTAL PROTEIN 8.1 gm/dL (6.0-8.0)
[2023-02-01] MEDS ORDERED: FLOMAX0.4 MG PO (00:48)
[2023-02-01] MEDS ORDERED: ONDANSETRON4 MG SL (00:48)
[2023-02-01] MEDS ORDERED: CIPRO500 MG PO (00:48)
== END 2023-02-01 01:06 | disposition home or self-care (01) ==
LOC: ED 22:16
PROVIDERS: Emergency Medicine
DX: R10.9 Unspecified abdominal pain (principal); R11.2 Nausea with vomiting, unspecified; R31.9 Hematuria, unspecified; R00.0 Tachycardia, unspecified; Z87.442 Personal history of urinary calculi; Z91.041 Radiographic dye allergy status; Z79.899 Other long term (current) drug therapy; Z90.711 Acquired absence of uterus with remaining cervical stump; Z98.890 Other specified postprocedural states; Z90.49 Acquired absence of other specified parts of digestive tract

== ENCOUNTER 2023-02-19 12:25 | Emergency (ER) | payer OTHER ==
[~2023-02-19] VITALS: Ht 165.1 cm; Wt 72.6 kg
[~2023-02-19 12:25] MED LIST changes: +FLOMAX0.4 MG PO; +ONDANSETRON4 MG SL
[2023-02-19 13:15] LABS: BASO # 0.1 10*3/uL (0.0-0.1); BASO % 0.8 % (0.0-1.0); EOS # 0.1 10*3/uL (0.0-0.4); EOS % 2.2 % (1.0-4.0); HEMATOCRIT 41.8 % (37.0-47.0); LYMPH # 2.1 10*3/uL (1.3-4.4); LYMPH % 34.9 % (27.0-41.0); MEAN CELL VOLUME 86.5 fl (81.0-99.0); MEAN CORPUSCULAR HGB 28.8 pg (27.0-31.0); MEAN CORPUSCULAR HGB CONC 33.3 g/dl (33.0-37.0); MEAN PLATELET VOLUME 10.1 fl (9.6-12.3); MONO # 0.5 10*3/uL (0.1-1.0); MONO % 7.6 % (3.0-9.0); NEUT # 3.3 10*3/uL (2.3-7.9); NEUT % 54.3 % (47.0-73.0); PLATELET COUNT AUTOMATED 210 10*3/uL (130-400); RED BLOOD COUNT 4.83 10*6/uL (4.10-5.10); RED CELL DISTRI WIDTH 12.1 % (0-14.5)
[2023-02-19 13:15] LABS: BILIRUBIN Negative (Negative); BLOOD 3+ (Negative); CLARITY Cloudy (Clear); COLOR Orange (Yellow); GLUCOSE 2+ (Negative); KETONE Negative (Negative); LEUKO ESTERASE 1+ (Negative); NITRITE Negative (Negative)
[2023-02-19 13:33] LABS: BACTERIA 1+; RBC TNTC rbc/hpf (0-2)
[2023-02-19 13:43] LABS: ALKALINE PHOSPHATASE 111 U/L (46-116); BUN 9 mg/dl (9-23); CHLORIDE 106 mmol/L (98-107); POTASSIUM 3.2 mmol/L (3.4-5.1); SGPT/ALT 60 U/L (10-49); TOTAL PROTEIN 7.5 gm/dL (6.0-8.0)
== END 2023-02-19 15:03 | disposition home or self-care (01) ==
LOC: ED 12:25
PROVIDERS: Emergency Medicine; Student in an Organized Health Care Education/Training Program
DX: N20.0 Calculus of kidney (principal); Z91.041 Radiographic dye allergy status; Z90.710 Acquired absence of both cervix and uterus; Z90.49 Acquired absence of other specified parts of digestive tract; Z98.890 Other specified postprocedural states

== ENCOUNTER 2023-07-17 18:48 | Emergency (ER) | payer OTHER ==
[~2023-07-17] VITALS: Ht 162.5 cm; Wt 77.1 kg
[2023-07-17 20:31] LABS: BASO % 0.1 % (0.0-1.0); HEMATOCRIT 43.1 % (37.0-47.0); LYMPH # 0.9 10*3/uL (1.3-4.4); LYMPH % 10.5 % (27.0-41.0); MEAN CELL VOLUME 84.5 fl (81.0-99.0); MEAN CORPUSCULAR HGB 29.2 pg (27.0-31.0); MEAN CORPUSCULAR HGB CONC 34.6 g/dl (33.0-37.0); MONO # 0.3 10*3/uL (0.1-1.0); MONO % 3.4 % (3.0-9.0); NEUT # 7.6 10*3/uL (2.3-7.9); NEUT % 85.7 % (47.0-73.0); PLATELET COUNT AUTOMATED 261 10*3/uL (130-400); WHITE BLOOD COUNT 8.9 10*3/uL (4.8-10.8)
[2023-07-17 20:33] LABS: BILIRUBIN Negative (Negative); BLOOD 3+ (Negative); CLARITY Turbid (Clear); COLOR Red (Yellow); GLUCOSE 3+ (Negative); KETONE Trace (Negative); LEUKO ESTERASE Trace (Negative); NITRITE Negative (Negative); SPECIFIC GRAVITY >= 1.030 (1.001-1.030); UROBILINOGEN 0.2 E.U./dl (0.0-1.0)
[2023-07-17 20:51] LABS: BACTERIA 2+; RBC 21-30 rbc/hpf (0-2)
[2023-07-17 20:53] LABS: ALKALINE PHOSPHATASE 107 U/L (46-116); BUN 13 mg/dl (9-23); CHLORIDE 105 mmol/L (98-107); LIPASE 62 U/L (12-53); POTASSIUM 3.9 mmol/L (3.4-5.1); SGPT/ALT 40 U/L (5-49); TOTAL PROTEIN 8.2 gm/dL (6.0-8.0)
[2023-07-17 21:05] LABS: ACT PARTIAL THROMBO TIME 27.4 SECONDS (20.0-32.1)
[2023-07-17] MEDS ORDERED: REGLAN10 M1 PO (21:55)
[2023-07-17] MEDS ORDERED: CIPRO500 MG PO (22:07)
== END 2023-07-18 02:30 | disposition home or self-care (01) ==
LOC: ED 18:48
PROVIDERS: Internal Medicine
DX: N20.0 Calculus of kidney (principal); Z76.5 Malingerer [conscious simulation]; N39.0 Urinary tract infection, site not specified; Z91.041 Radiographic dye allergy status; Z90.710 Acquired absence of both cervix and uterus; Z90.49 Acquired absence of other specified parts of digestive tract; Z98.890 Other specified postprocedural states

== ENCOUNTER 2023-09-10 22:05 | Emergency (ER) | payer OTHER ==
[~2023-09-10 22:05] MED LIST changes: +REGLAN10 M1 PO
== END 2023-09-11 01:41 | disposition left against medical advice (07) ==
LOC: ED 22:05
DX: R10.9 Unspecified abdominal pain (principal); Z91.041 Radiographic dye allergy status; Z90.49 Acquired absence of other specified parts of digestive tract; Z90.710 Acquired absence of both cervix and uterus; Z98.890 Other specified postprocedural states; Z53.29 Procedure and treatment not carried out because of patient's decision for other reasons

== ENCOUNTER 2023-11-29 19:23 | Emergency (ER) | payer OTHER ==
[~2023-11-29] VITALS: Ht 165.1 cm; Wt 77.1 kg
[2023-11-29] MEDS ORDERED: SEROQUEL50 MG PO (19:42)
[2023-11-29] MEDS ORDERED: Ondansetron Hydrochloride 4 MG TAB PO ONE (19:55)
[2023-11-29 20:08] LABS: BASO % 0.6 % (0.0-1.0); EOS # 0.1 10*3/uL (0.0-0.4); EOS % 1.4 % (1.0-4.0); HEMATOCRIT 40.5 % (37.0-47.0); LYMPH # 2.2 10*3/uL (1.3-4.4); LYMPH % 33.7 % (27.0-41.0); MEAN CELL VOLUME 87.7 fl (81.0-99.0); MEAN CORPUSCULAR HGB 28.8 pg (27.0-31.0); MEAN CORPUSCULAR HGB CONC 32.8 g/dl (33.0-37.0); MEAN PLATELET VOLUME 10.1 fl (9.6-12.3); MONO # 0.6 10*3/uL (0.1-1.0); MONO % 9.9 % (3.0-9.0); NEUT # 3.5 10*3/uL (2.3-7.9); NEUT % 54.2 % (47.0-73.0); PLATELET COUNT AUTOMATED 212 10*3/uL (130-400); RED BLOOD COUNT 4.62 10*6/uL (4.10-5.10); RED CELL DISTRI WIDTH 12.4 % (0-14.5); WHITE BLOOD COUNT 6.5 10*3/uL (4.8-10.8)
[2023-11-29 20:11] LABS: BILIRUBIN Negative (Negative); BLOOD 3+ (Negative); CLARITY Cloudy (Clear); COLOR Red (Yellow); GLUCOSE Negative (Negative); KETONE Negative (Negative); LEUKO ESTERASE 3+ (Negative); NITRITE Negative (Negative); SPECIFIC GRAVITY 1.015 (1.001-1.030); UROBILINOGEN 0.2 E.U./dl (0.0-1.0)
[2023-11-29 20:27] LABS: BACTERIA 1+; RBC 41-50 rbc/hpf (0-2); WBC 31-40 wbc/hpf (0-5)
[2023-11-29 20:29] LABS: ALKALINE PHOSPHATASE 88 U/L (46-116); BUN 16 mg/dl (9-23); CHLORIDE 101 mmol/L (98-107); LIPASE 100 U/L (12-53); POTASSIUM 3.6 mmol/L (3.4-5.1); SGPT/ALT 43 U/L (5-49); TOTAL PROTEIN 7.7 gm/dL (6.0-8.0)
[2023-11-29] MEDS ORDERED: ONDANSETRON4 MG SL (22:21)
== END 2023-11-29 22:26 | disposition home or self-care (01) ==
LOC: ED 19:23
PROVIDERS: Physician Assistant Medical
DX: N39.0 Urinary tract infection, site not specified (principal); R31.9 Hematuria, unspecified; R03.0 Elevated blood-pressure reading, without diagnosis of hypertension; Z91.041 Radiographic dye allergy status; Z90.49 Acquired absence of other specified parts of digestive tract; Z90.710 Acquired absence of both cervix and uterus; Z98.890 Other specified postprocedural states; Z87.442 Personal history of urinary calculi

== ENCOUNTER 2025-08-22 23:30 | Emergency (ER) | payer OTHER ==
[~2025-08-22] VITALS: Ht 165.1 cm; Wt 70.3 kg
[~2025-08-22 23:30] MED LIST changes: +SEROQUEL50 MG PO
[2025-08-22] MEDS ORDERED: CLOPIDOGREL75 MG PO (23:59)
[2025-08-23] MEDS ORDERED: Coumadin3 MG PO
[2025-08-23] MEDS ORDERED: METOPROLOL SUCC25 M2 PO
[2025-08-23] MEDS ORDERED: ADDERALL XR 3030 MG PO (00:01)
[2025-08-23] MEDS ORDERED: ROSUVASTATIN CA20 MG PO (00:01)
[2025-08-23] MEDS ORDERED: ATIVAN1 MG PO (00:02)
[2025-08-23] MEDS ORDERED: QUETIAPINE FUM200 M1 PO (00:03)
[2025-08-23] MEDS ORDERED: FLUOXETINE40 MG PO (00:03)
[2025-08-23] MEDS ORDERED: PROZAC20 MG PO (00:04)
[2025-08-23 00:11] LABS: BASO # 0.0 10*3/uL (0.0-0.1); BASO % 0.3 % (0.0-1.0); EOS # 0.2 10*3/uL (0.0-0.4); EOS % 3.0 % (1.0-4.0); MEAN CELL VOLUME 87.0 fl (81.0-99.0); MEAN CORPUSCULAR HGB 27.6 pg (27.0-31.0); MEAN PLATELET VOLUME 10.0 fl (9.6-12.3); MONO # 0.6 10*3/uL (0.1-1.0); MONO % 10.3 % (3.0-9.0); NEUT # 3.3 10*3/uL (2.3-7.9); NEUT % 56.8 % (47.0-73.0); NUCLEATED RED BLOOD CELL 0.0 % (0.0-0.0); NUCLEATED RED BLOOD CELL 0.0 10*3/uL (0.0-0.0); PLATELET COUNT AUTOMATED 172 10*3/uL (130-400); RED CELL DISTRI WIDTH 14.1 % (0-14.5)
[2025-08-23 00:27] LABS: BUN 16 mg/dl (9-23)
[2025-08-23] MEDS ORDERED: Promethazine Hydrochloride 25 MG/ML VIAL IM ONE (00:50)
[2025-08-23] MEDS ORDERED: HYDROmorphONE Hydrochloride 0.5 MG/0.5 ML SYRINGE IM ONE (00:50)
[2025-08-23] MEDS ORDERED: diphenhydrAMINE hydrochloride 25 MG CAP PO ONE ×2 (00:55→01:05)
== END 2025-08-23 02:06 | disposition home or self-care (01) ==
LOC: ED 23:30
PROVIDERS: Internal Medicine
DX: R07.89 Other chest pain (principal); D64.9 Anemia, unspecified; Z90.710 Acquired absence of both cervix and uterus; Z98.890 Other specified postprocedural states; Z90.49 Acquired absence of other specified parts of digestive tract; Z88.6 Allergy status to analgesic agent; Z88.1 Allergy status to other antibiotic agents; Z88.8 Allergy status to other drugs, medicaments and biological substances